=== PATIENT | male | born 1965 | race Caucasian/White ===

== ENCOUNTER 2018-07-17 16:22 | Emergency (ER) | payer MEDICARE, SELFPAY ==
[2018-07-17 16:24] VITALS: BP 145/101; PULSE 87; RESP 20; TEMP 36.4; O2SAT 99; BMI 30.7
--- NOTE | 2018-07-17 16:47 | ED.VISSUMM ---
- ER Visit Summary Date of Service: 07/17/18 Chief Complaint: [] Numbness from head to toe cannot walk History of Present Illness: The patient is a 53 M [] is a history of asthma syncopal spells, and numbness spells . His chief complaint is today he drove to the Social Security office locally he was not sick in any way he was undergoing a further assessment update his of his filed as he has Social Security disability for asthma and syncopal spells. As he sat waiting to be interviewed he indicates he began getting numb from head to toe to the point he could not walk, paramedics were called when this persisted he was brought to the hospital. He indicates he has had these spells multiple times in the past he will get 2 or 3 similar type spells a month he has had an extensive prior evaluation and varies different facilities in the area he cannot remove the specifics but he recalls having extensive MRIs, cardiac tests blood work and other workup and he has never been told he has had a psoas seizure stroke SD PE DVT or anything life-threatening disc that causes these he has no history of MS. He indicates nothing happened to cause the episode today. Usually it can last for variable period of time but usually by an hour he is able to walk and he still indicates his legs are so numb he cannot walk he has no complaints of headache change in vision chest pain abdominal pain, just that he is numb over his entire body Physical Examination: [] His vital signs are within normal limits he speaking full sentences cranial nerves intact and normal his HEENT exam is unremarkable his lungs are clear his heart tones are normal the abdomen is soft nontender rebound guarding organomegaly neurologically he will not move his legs he indicates that he has numbness densely for all areas of both lower extremities he has strong pulses he indicates he can barely feel me touching him when I ask him to hold his feet up he states he cannot do that when I hold his feet up bilaterally they dropped nearly back to the bed he is moving his upper extremities normally, again he denies headache neck pain chest pain abdominal pain or any type of trauma, he assures me drove to the Social Security office and he was not sick nothing triggered this and he has had these spells in the past Test Results: [] Emergency Department Course and Treatment: [] Now he has a recollection of the workup as above but he does not recall having the names of the facilities where he was tested he believes some of these tests were done at [facility] but cannot be for sure, he was under the care of multiple physicians but he stopped seeing them because he indicates the spells persisted and the physicians could not help him At this time given all the above he will undergo head CT labs EKG IV fluids and will reevaluate The patient's CT and labs studies, are all generally unremarkable see all those reports valuation he feels better he is moving his legs now we discussed inpatient versus outpatient management he states he feels much better now he wants to go home he does not wish to be admitted, he [place] south of [facility] he does not wish to be referred to any local physicians as he cannot follow-up with them, I suggested he follow-up with [facility] for the symptoms he has been referred to physicians in [place] and refuses to be referred to any physicians in [place] he will follow-up with physicians at his discretion by his reports in his home area and return for change in symptoms Treatment Plan: [] Disposition: [] Home stable declined admission Impression: [] Whole body numbness improved to resolved history of same patient declined admission This note was generated with [employer] dictation software. It may contain incorrect words, spelling, and punctuation that were not noted in review of the chart prior to signing ED Disposition - Plan for ED Patient: Chief Complaint: Neuro S/Sx
--- NOTE | 2018-07-17 16:50 | ED.DCSUM_ITS ---
- ER Visit Summary Date of Service: 07/17/18 Chief Complaint: [] Numbness from head to toe cannot walk History of Present Illness: The patient is a 53 M [] is a history of asthma syncopal spells, and numbness spells . His chief complaint is today he drove to the Social Security office locally he was not sick in any way he was undergoing a further assessment update his of his filed as he has Social Security disability for asthma and syncopal spells. As he sat waiting to be interviewed he indicates he began getting numb from head to toe to the point he could not walk, paramedics were called when this persisted he was brought to the hospital. He indicates he has had these spells multiple times in the past he will get 2 or 3 similar type spells a month he has had an extensive prior evaluation and varies different facilities in the area he cannot remove the specifics but he recalls having extensive MRIs, cardiac tests blood work and other workup and he has never been told he has had a psoas seizure stroke OR PE DVT or anything life -threatening disc that causes these he has no history of MS. He indicates nothing happened to cause the episode today. Usually it can last for variable period of time but usually by an hour he is able to walk and he still indicates his legs are so numb he cannot walk he has no complaints of headache change in vision chest pain abdominal pain, just that he is numb over his entire body Physical Examination: [] His vital signs are within normal limits he speaking full sentences cranial nerves intact and normal his HEENT exam is unremarkable his lungs are clear his heart tones are normal the abdomen is soft nontender rebound guarding organomegaly neurologically he will not move his legs he indicates that he has numbness densely for all areas of both lower extremities he has strong pulses he indicates he can barely feel me touching him when I ask him to hold his feet up he states he cannot do that when I hold his feet up bilaterally they dropped nearly back to the bed he is moving his upper extremities normally, again he denies headache neck pain chest pain abdominal pain or any type of trauma, he assures me drove to the Social Security office and he was not sick nothing triggered this and he has had these spells in the past Test Results: [] Emergency Department Course and Treatment: [] Now he has a recollection of the workup as above but he does not recall having the names of the facilities where he was tested he believes some of these tests were done at [facility] but cannot be for sure, he was under the care of multiple physicians but he stopped seeing them because he indicates the spells persisted and the physicians could not help him At this time given all the above he will undergo head CT labs EKG IV fluids and will reevaluate The patient's CT and labs studies, are all generally unremarkable see all those reports valuation he feels better he is moving his legs now we discussed inpatient versus outpatient management he states he feels much better now he wants to go home he does not wish to be admitted, he [place] south of [facility] he does not wish to be referred to any local physicians as he cannot follow -up with them, I suggested he follow-up with [facility] for the symptoms he has been referred to physicians in [place] and refuses to be referred to any physicians in [place] he will follow-up with physicians at his discretion by his reports in his home area and return for change in symptoms Treatment Plan: [] Disposition: [] Home stable declined admission Impression: [] Whole body numbness improved to resolved history of same patient declined admission This note was generated with [employer] dictation software. It may contain incorrect words, spelling, and punctuation that were not noted in review of the chart prior to signing ED Disposition - Plan for ED Patient: Chief Complaint: Neuro S/Sx
[2018-07-17] MEDS: 0.9% Normal Saline 1,000 ML 150 ML IV (16:56)
[2018-07-17] MEDS: Aspirin 81 MG TAB.CHEW 324 MG PO (16:56)
[2018-07-17 17:06] LABS: Absolute Lymphocyte Count 2.54 X10^3/ul (0.83-4.51); Absolute Neutrophil Count 5.5 X10^3/uL (2.0-7.7); Basophil# 0.03 X10^3/uL; Basophil% 0.3 % (0-1); Eosinophil# 0.41 X10^3/uL; Eosinophils% 4.5 % (0-5); Hematocrit 43.9 % (40-54); Hemoglobin 15.1 g/dl (13.0-16.5); Lymphocyte # 2.54 X10^3/ul (4.0); Lymphocyte % 27.9 % (19-41); Mean Corp Hgb Conc 34.4 g/gl (32-36); Mean Corpuscular Hgb 28.3 pg (27.0-32.0); Mean Corpuscular Volume 82.2 fL (80-94); Mean Platelet Vol. 9.7 fl (6.2-12.0); Monocyte# 0.63 X10^3/uL; Monocyte% 6.9 % (0-10); Neutrophil # 5.49 X10^3/uL (2.7-7.7); Neutrophil % 60.3 % (47-70); POSITIVE COUNT NO; POSITIVE DIFFERENTIAL NO; POSITIVE MORPHOLOGY NO; Platelet Count 223 K/mm3 (150-450); RBC Distribution Width CV 13.2 % (11.6-14.6); RBC Distribution Width SD 39.9 fl (35.1-43.9); Red Blood Count 5.34 M/mm3 (4.6-6.2); White Blood Count 9.1 K/mm3 (4.4-11.0)
[2018-07-17 17:22] LABS: Anion Gap 14 (5-15); BUN 17 mg/dL (7-18); BUN/Creat Ratio 16.7 RATIO (10-20); Calcium,Total 9.3 mg/dL (8.5-10.1); Chloride 110 mmol/L (98-107); Creatinine, Serum 1.02 mg/dL (0.70-1.30); EST Glomerular Filtration Rate 81 mL/min (>60); Est Glom Filt Rate - Afr Amer 98 mL/min (>60); Estimated Creatinine Clearance 83.75 ml/min; Glucose 96 mg/dL (74-106); Magnesium 2.2 mg/dL (1.6-2.6); Potassium 3.6 mmol/L (3.5-5.1); Sodium Level 142 mmol/L (136-145)
[2018-07-17 17:23] VITALS: BP 141/89; PULSE 86; RESP 16; O2SAT 99
[2018-07-17 17:31] LABS: Bedside Glucose 99 mg/dL (70-110)
[2018-07-17 18:00] VITALS: BP 138/91; PULSE 82; RESP 16; O2SAT 96
--- NOTE | 2018-07-17 19:25 | ED.DEP ---
ED Disposition - Plan for ED Patient: Chief Complaint: Neuro S/Sx Instructions: ED Weakness [facility] Referrals: Care Physician,No Primary [Primary Care Provider] -
[2018-07-17 19:34] VITALS: BP 136/91; PULSE 75; RESP 19; O2SAT 97
--- NOTE | 2018-07-17 19:34 | ED.RN ---
PT GIVEN WRITTEN AND VERBAL DISCHARGE INSTRUCTIONS. PT EDUCATED ON SIGNS AND SX TO RETURN TO ED. PT VERBALIZES UNDERSTANDING AND DENIES ANY FURTHER QUESTIONS. PT IV D/C AND COVERED WITH 2X2 GAUZE AND PAPER TAPE. PT AMBULATES OUT OF DEPT WITH FAMILY AFTER DRESSING SELF.
== END 2018-07-17 19:39 | disposition home or self-care (01) ==
LOC: ED 17:16
PROVIDERS: Emergency Provider Emergency Medicine
DX: R20.0 Anesthesia of skin (principal)
CPT/HCPCS: 70450; 71045; 80048; 82962; 83735; 84484; 85025; 93005; 99285; A4216